=== PATIENT | male | born 1935 | race Caucasian/White ===

== ENCOUNTER 2016-06-24 01:13 | Day surgery (SDC) | payer MEDICARE ==
[2016-06-24] VITALS (9 sets, daily range): BP systolic 117–136; BP diastolic 73–83; PULSE 60–71; RESP 18–25; O2SAT 92–97
[~2016-06-24] VITALS: Ht 170.2 cm; Wt 91.0 kg
[~2016-06-24 01:13] MED LIST: ALBU8.5H2 INHALATION; BENZ100C8 PO; CHOL200047 PO; CYAN1TAB42 PO; DIGO250T72 PO; FEBU40TA PO; FURO40TA4 PO; HYDR-4003 PO; INDO75CA2 PO; METO50TA3 PO; MOME13HF2 IH; RED600CA2 PO; TIOT18CA3 IH; VIT1CAPS4 PO; WARF5TAB7 PO
[2016-06-24] MEDS ORDERED: 0.9% Sodium Chloride 1,000 ML IV ONE (07:26)
[2016-06-24 11:42] LABS: BASOPHILS % (AUTO) 0.5 % (0-3); EOSINOPHILS % (AUTO) 4.2 % (0-5); MONOCYTES % (AUTO) 12.2 % (4-12); Mean Corpuscular Hemoglobin 30.5 pg (27.0-35.0); Mean Corpuscular Volume 93.3 fL (81-100); NEUTROPHILS % (AUTO) 64.2 % (40-74); Platelet Count 146 bil/L (150-400)
[2016-06-24 11:55] LABS: INR 1.14 ratio
[2016-06-24] MEDS ORDERED: Nitroglycerin 50,000 mcg/250 mL D5W Premix IV ONE ×2 (12:10→13:32)
[2016-06-24] MEDS ORDERED: 0.9% Sodium Chloride 0 ML ONE ×2 (12:10)
[2016-06-24] MEDS ORDERED: Heparin 1,000 Unit/mL 10 mL Inj ONE (12:11)
[2016-06-24] MEDS ORDERED: 0.9% Sodium Chloride 500 ML ONE ×2 (13:15→14:20)
[2016-06-24] MEDS ORDERED: fentaNYL-PF 50 mCg/mL 2 mL Inj ONE (13:32)
[2016-06-24] MEDS ORDERED: 0.9% Sodium Chloride 50 ML ONE (13:59)
--- NOTE | 2016-06-24 14:29 | ABG ---
DateTimeAnalyzed 14:23:00 -_ pH ____7.345 - 7.350 7.450 pCO2 ___50.5__ -mmHg 35.0 45.0 pO2 ___71.1__ -mmHg 69.0 116 HCO3- ___26.8__ -mmol/L 22.0 26.0 ABE ____0.9__ -mmol/L -2.0 2.0 tHb ___13.4__ -g/dL O2Hb ___92.0__ -% COHb ____1.2__ -% MetHb ____0.8__ -% sO2 ___93.9__ -% 25.0 Drawn By __cathlab - Oxygen Device 1 ___unkown - Notified By as - Notified Whom _cath lab - B 752 -mmHg tO2 ___17.4__ -Vol% Thomas test N/A -
--- NOTE | 2016-06-24 14:32 | ABG ---
DateTimeAnalyzed 14:27:00 -_ pH ____7.390 - 7.350 7.450 pCO2 ___45.6__ -mmHg 35.0 45.0 pO2 ___48.7__ -mmHg 69.0 116 HCO3- ___27.0__ -mmol/L 22.0 26.0 ABE ____2.0__ -mmol/L -2.0 2.0 tHb ___14.5__ -g/dL O2Hb ___81.8__ -% COHb ____1.3__ -% MetHb ____0.8__ -% sO2 ___83.6__ -% 25.0 FIO2 ___21.0__ -% Drawn By _cath lab - Date/Time Notified____ 14:31:00 -_ Notified By AMS - Notified Whom ____DR LO - B 752 -mmHg tO2 ___16.7__ -Vol% Thomas test N/A -
--- NOTE | 2016-06-24 16:11 | CS94 ---
[address] [address] DIAGNOSTIC CARDIAC CATHETERIZATION PATIENT: MICHAEL GARG : 1935 MR#: [id number] ADMIT: 06/24/2016 JOB ID: [id number] SERVICE DATE: 06/24/2016 PROCEDURE NOTE--CARDIAC CATHETERIZATION LABORATORY: DATE OF PROCEDURE: Friday, June 24, 2016. RETAIL SUPPORT ASSOCIATE: Kalia Cruz MD. Spike Barragan MD. PROCEDURES: 1. Right heart catheterization. 2. Coronary angiogram. PROCEDURAL DETAILS: This 80-year-old man presents to the cardiac catheterization laboratory for right heart catheterization and left heart catheterization. He has aortic stenosis. He was prepped sterilely and draped for the procedure. RIGHT HEART CATHETERIZATION (RHC) Venous access was obtained without difficulty in the right common femoral vein using ultrasound localization and fluoroscopic localization over the femoral head to insert a 10 cm, 7-Tuvaluan side-arm sheath. A right heart catheterization was performed with a 7-Tuvaluan balloon-tipped Letart catheter that was advanced to the pulmonary artery wedge position; then oxygen saturations and thermodilution cardiac output was measured; and then the catheter was pulled back progressively to measure right heart pressures; then removed. CORONARY ANGIOGRAM: At the beginning of the procedure, arterial access was obtained without difficulty in the right common femoral artery using ultrasound localization and fluoroscopic localization over the femoral head and modified Seldinger technique to insert a 10 cm, 6-Tuvaluan side-arm sheath. Catheters were advanced and exchanged over a long 0.035-inch, J tipped guidewire. After the left coronary angiogram, the sheath was exchanged over an exchange length wire for a long, 25 cm, 6-Tuvaluan side-arm sheath because of tortuosity in the iliac artery. The left coronary artery was engaged with a 6-Tuvaluan, JL-3.5 catheter. Initially, a JL-4 catheter was too large for his aortic root. The right coronary artery was engaged with a 6-Tuvaluan, JR-4 catheter. LV not entered. PROCEDURE WITHOUT DIFFICULTY. Patient tolerated procedure well. No complications. A side-arm sheath angiogram showed a high common femoral bifurcation and arterial access was just above the bifurcation. Arterial hemostasis was obtained without difficulty using a Mynx device. The patient was transferred to the catheterization laboratory in stable condition to the MERE unit for ongoing care. I discussed the procedure and findings with the patient (no family present), with Cardiology, Dr. Cruz. FINDINGS: LMCA: Left main coronary artery is intact. The left main coronary artery is a moderate-length artery with no lesions. LAD: Intact. The left anterior descending coronary artery is a short vessel that ends before the apex. It has no lesions. There are two small diagonal branches. LCX: Codominant. The left circumflex coronary artery distribution includes a moderate-sized 1st OM which has a 60% focal ostial lesion with MITZI-3 flow. The mid LCX is ectatic. The distal LCX includes a large LPLB, which has a subtotal lesion in its very distal portion with MITZI-3 flow. There is a 2nd small LPL branch. RCA: Codominant. The right coronary artery is a large vessel with a terminal medium-sized posterior descending artery and a trivial RPLB. There is diffuse moderate atherosclerosis in the RCA including an intermediate 50% to 60% focal mid lesion and a tubular distal 60% lesion with MITZI-3 flow. RHC: 1. PAW 17, mean ( A 17; and V 21). 2. PA 50/17 (PA sat 84). 3. RV 50/6. 4. RA 5 (mean). Cardiac output 4.96 (index 2.46)--by thermodilution. FA sat 94%. CONCLUSIONS: Coronary atherosclerosis with no angiographically severe coronary lesions. Note intermediate lesions of proximal RCA, mid RCA, and distal RCA; ostial OM1; and very distal LPLB.
--- NOTE | 2016-06-24 16:31 | CS94 ---
[address] [address] DIAGNOSTIC CARDIAC CATHETERIZATION PATIENT: MICHAEL GARG : 1935 MR#: [id number] ADMIT: 06/24/2016 JOB ID: [id number] SERVICE DATE: 06/24/2016 PATIENT PROFILE: The patient is a 80-year-old male who has symptomatic severe aortic stenosis. PROCEDURE: 1. Right heart catheterization. 2. Retrograde left heart catheterization. 3. Selective coronary angiography. METHOD: Please see Dr. Barragan's note for details. He performed the procedure under my supervision. RESULTS: 1. Moderate pulmonary hypertension. 2. Cardiac index is 2.46 L/minute/m2. 3. Non-obstructive coronary artery disease with calcification. PLAN: The patient will be referred to [facility] for TAVR. HARITHA
--- NOTE | 2016-06-24 18:32 | NUR ---
MERE DISCHARGE PT COMPLETED BEDREST AND AMBULATED IN RIGGS AND USED BATHROOM. RIGHT GROIN REMAINED SOFT, NON TENDER, NO BLEEDING OR HEMATOMA NOTED. DISCHARGE INSTRUCTIONS INCLUDING F/U WITH [facility] AND DR MORA, MEDICATIONS, AND POST HEART CATH AND SEDATION INSTRUCTIONS WERE REVIEWED WITH PT AND AND THEY VERBALIZED UNDERSTANDING. PT WAS DISCHARGED WITH AT 1800 IN STABLE CONDITION.
== END 2016-06-24 23:59 | disposition home or self-care (01) ==
LOC: SOUO 01:13
PROVIDERS: ATTEND Internal Medicine Interventional Cardiology
DX: I35.0 Nonrheumatic aortic (valve) stenosis (principal); I25.10 Atherosclerotic heart disease of native coronary artery without angina pectoris; I27.2 Other secondary pulmonary hypertension
CPT/HCPCS: 36415; 36600; 80048; 82375; 82803; 85025; 85610; 93005; 93456; 99152; 99153; C1760; C1769; J1644; J2250; J3010; J7030; J7040; Q9967